=== PATIENT | male | born 1985 | race Caucasian/White ===

== ENCOUNTER 2022-09-03 10:05 | Inpatient (IN) | payer OTHER ==
[2022-09-03 10:27] VITALS: BMI 32.2
[2022-09-03] MEDS ORDERED: BENZOCAINE/MENTHOL (CHLORASEPTIC ) LOZENGE MM PRN (11:39)
[2022-09-03] MEDS ORDERED: NALOXONE HCL (KLOXXADO) 8 MG SPRAY NS PRN (11:39)
[2022-09-03] MEDS ORDERED: NICOTINE 10 MG CARTRIDGE (INHALER) IH PRN (11:39)
[2022-09-03] MEDS ORDERED: DICYCLOMINE HCL 10 MG CAPSULE PO PRN (11:39)
[2022-09-03] MEDS ORDERED: BENZONATATE 200 MG CAPSULE PO PRN (11:39)
[2022-09-03] MEDS ORDERED: ACETAMINOPHEN 325 MG TABLET (FP) PO PRN (11:39)
[2022-09-03] MEDS ORDERED: BISMUTH SUBSALICYLATE 262 MG/15 ML BTL PO PRN (11:39)
[2022-09-03] MEDS ORDERED: MAG HYDROX/AL HYDROX/SIMETH 30 ML UNIT-DOSE CUP PO PRN (11:39)
[2022-09-03] MEDS ORDERED: MAGNESIUM HYDROX 2400MG/30ML ORAL SUSPENSION 30 ML CUP PO PRN (11:39)
[2022-09-03] MEDS ORDERED: LORazepam 2 MG TABLET PO ONE (11:39)
[2022-09-03] MEDS ORDERED: IBUPROFEN 600 MG TABLET (FP) PO PRN (11:39)
[2022-09-03] MEDS ORDERED: METHOCARBAMOL 500 MG TABLET PO PRN (11:39)
[2022-09-03] MEDS ORDERED: LOPERAMIDE HCL 2 MG CAPSULE PO PRN (11:39)
[2022-09-03] MEDS ORDERED: hydrOXYzine PAMOATE 25 MG CAPSULE (FP) PO PRN (11:39)
[2022-09-03] MEDS ORDERED: POLYETHYLENE GLYCOL (HEALTHYLAX) 3350 17 GM PACKET PO PRN (11:39)
[2022-09-03] MEDS ORDERED: NALOXONE HCL 0.4 MG/ML VIAL IM PRN (11:39)
[2022-09-03] MEDS ORDERED: guaiFENesin 600 MG TABLET.ER (FP) PO PRN (11:39)
[2022-09-03] MEDS ORDERED: ONDANSETRON *ODT* 4 MG TABLET SL PRN (11:39)
[2022-09-03] MEDS ORDERED: IBUPROFEN 400 MG TABLET (FP) PO PRN (11:39)
[2022-09-03] MEDS ORDERED: NICOTINE 14 MG/24 HOURS TOPICAL PATCH TD ONE (12:29)
[2022-09-03] MEDS ORDERED: LORazepam 2 MG TABLET ONE (12:29)
[2022-09-03] MEDS ORDERED: PRENATAL VITAMINS W/ FOLIC ACID TABLET (FP) PO ONE (12:29)
[2022-09-03] MEDS: PRENATAL VITAMINS W/ FOLIC ACID TABLET (FP) PO SCH (12:34)
[2022-09-03] MEDS: NICOTINE 14 MG/24 HOURS TOPICAL PATCH TD SCH (12:34)
[2022-09-03] MEDS: LORazepam 1 MG TABLET PO PRN ×2 (13:27→18:36)
[2022-09-03 14:30] LABS: HEMATOCRIT 43.2 % (35.4-49); HEMOGLOBIN 15.4 GM/dL (11.7-16.9); MCH 29.2 pg (25.7-33.7); MCHC 35.7 g/dl (32.0-35.9); MEAN CELL VOLUME 81.7 fl (80-96); MEAN PLT VOLUME 9.1 fl (7.5-11.1); PLATELET COUNT 305 10^3/uL (134-434); RBC 5.28 M/mm3 (4.00-5.60); RDW 13.5 % (11.9-15.9); WHITE BLOOD COUNT 6.5 K/mm3 (4.0-10.0)
[2022-09-03 14:35] LABS: CALCIUM 9.1 mg/dL (8.5-10.1)
[2022-09-03 14:36] LABS: ALBUMIN 4.1 g/dl (3.4-5.0); BLOOD UREA NITROGEN 3.3 mg/dL (7-18)
[2022-09-03 14:39] LABS: CREATININE 0.7 mg/dL (0.55-1.3)
[2022-09-03 14:40] LABS: BILIRUBIN,TOTAL 0.5 mg/dL (0.2-1)
[2022-09-03 14:42] LABS: TOT PROT 8.6 g/dl (6.4-8.2)
[2022-09-03] MEDS: LORazepam 2 MG TABLET PO SCH ×2 (17:24→22:29)
[2022-09-03] MEDS ORDERED: THIAMINE HCL 100 MG TABLET (FP) PO SCH (22:00)
[2022-09-03] MEDS ORDERED: MELATONIN 5 MG TABLETS PO SCH (22:00)
[2022-09-04] MEDS: LORazepam 2 MG TABLET PO SCH ×2 (05:36→10:22)
[2022-09-04] MEDS: NICOTINE 14 MG/24 HOURS TOPICAL PATCH TD SCH (10:23)
[2022-09-04] MEDS: PRENATAL VITAMINS W/ FOLIC ACID TABLET (FP) PO SCH (10:23)
[2022-09-04 12:30] VITALS: BP 131/92; PULSE 100; RESP 16; TEMP 98.9
[2022-09-05] MEDS ORDERED: LORazepam 1 MG TABLET PO SCH (05:00)
[2022-09-06] MEDS ORDERED: LORazepam 0.5 MG TABLET PO PRN
[2022-09-06] MEDS ORDERED: LORazepam 0.5 MG TABLET PO SCH (05:00)
[2022-09-07] MEDS ORDERED: LORazepam 0.5 MG TABLET PO ONE (05:00)
== END 2022-09-04 13:40 | disposition left against medical advice (07) | DRG 770 ==
LOC: YASAS 10:05 → Y3N 12:35
PROVIDERS: ADMIT Allergy & Immunology; ATTEND Surgery
PROC: HZ2ZZZZ Detoxification Services for Substance Abuse Treatment (ICD-10-PCS; principal; 2022-09-03)
DX: F10.230 Alcohol dependence with withdrawal, uncomplicated (principal); F14.20 Cocaine dependence, uncomplicated; F17.210 Nicotine dependence, cigarettes, uncomplicated; F41.1 Generalized anxiety disorder; J45.909 Unspecified asthma, uncomplicated; J30.2 Other seasonal allergic rhinitis; K21.9 Gastro-esophageal reflux disease without esophagitis
CPT/HCPCS: 36415; 80053; 82140; 85027; 86780; 87811; 93005; 93010; C9803-CS; U0003; U0005

== ENCOUNTER 2022-12-25 18:46 | Inpatient (IN) | payer OTHER ==
[2022-12-25 21:42] VITALS: BMI 34.2
[2022-12-25] MEDS ORDERED: NALOXONE HCL (KLOXXADO) 8 MG SPRAY NS PRN (23:09)
[2022-12-25] MEDS ORDERED: BISMUTH SUBSALICYLATE 524 MG/30 ML PO PRN (23:09)
[2022-12-25] MEDS ORDERED: ONDANSETRON *ODT* 4 MG TABLET SL PRN (23:09)
[2022-12-25] MEDS ORDERED: BENZOCAINE/MENTHOL (CHLORASEPTIC ) LOZENGE MM PRN (23:09)
[2022-12-25] MEDS ORDERED: IBUPROFEN 600 MG TABLET (FP) PO PRN (23:09)
[2022-12-25] MEDS ORDERED: IBUPROFEN 400 MG TABLET (FP) PO PRN (23:09)
[2022-12-25] MEDS ORDERED: MAGNESIUM HYDROX 2400MG/30ML ORAL SUSPENSION 30 ML CUP PO PRN (23:09)
[2022-12-25] MEDS ORDERED: NICOTINE POLACRILEX 2 MG GUM BUC PRN (23:09)
[2022-12-25] MEDS ORDERED: POLYETHYLENE GLYCOL (HEALTHYLAX) 3350 17 GM PACKET PO PRN (23:09)
[2022-12-25] MEDS ORDERED: LOPERAMIDE HCL 2 MG CAPSULE PO PRN (23:09)
[2022-12-25] MEDS ORDERED: BENZONATATE 200 MG CAPSULE PO PRN (23:09)
[2022-12-25] MEDS ORDERED: MAG HYDROX/AL HYDROX/SIMETH 30 ML UNIT-DOSE CUP PO PRN (23:09)
[2022-12-25] MEDS ORDERED: METHOCARBAMOL 500 MG TABLET PO PRN (23:09)
[2022-12-25] MEDS ORDERED: ACETAMINOPHEN 325 MG TABLET (FP) PO PRN (23:09)
[2022-12-25] MEDS ORDERED: NALOXONE HCL 0.4 MG/ML VIAL IM PRN (23:09)
[2022-12-25] MEDS ORDERED: guaiFENesin 600 MG TABLET.ER (FP) PO PRN (23:09)
[2022-12-25] MEDS ORDERED: DICYCLOMINE HCL 10 MG CAPSULE PO PRN (23:09)
[2022-12-26] MEDS ORDERED: LORazepam 1 MG TABLET ONE (02:14)
[2022-12-26] MEDS: LORazepam 1 MG TABLET PO PRN ×2 (02:17→13:49)
[2022-12-26] MEDS: LORazepam 2 MG TABLET PO SCH ×3 (04:16→17:03)
[2022-12-26] MEDS ORDERED: PRENATAL VITAMINS W/ FOLIC ACID TABLET (FP) PO SCH (10:00)
[2022-12-26] MEDS ORDERED: NICOTINE 21 MG/24 HOURS TOPICAL PATCH TD SCH (10:00)
[2022-12-26 11:38] LABS: HEMATOCRIT 47.2 % (35.4-49); HEMOGLOBIN 16.1 GM/dL (11.7-16.9); MCH 28.1 pg (25.7-33.7); MCHC 34.2 g/dl (32.0-35.9); MEAN CELL VOLUME 82.1 fl (80-96); MEAN PLT VOLUME 9.1 fl (7.5-11.1); PLATELET COUNT 230 10^3/uL (134-434); RBC 5.75 M/mm3 (4.00-5.60); RDW 13.4 % (11.9-15.9); WHITE BLOOD COUNT 6.7 K/mm3 (4.0-10.0)
[2022-12-26 11:40] LABS: POTASSIUM 4.2 mmol/L (3.5-5.1)
[2022-12-26] MEDS ORDERED: PNEUMOC 20-VAL CONJ-DIP CRM/PF 0.5 ML SYRINGE IM ONE (12:00)
[2022-12-26 12:21] LABS: ALBUMIN 4.3 g/dl (3.4-5.0); CALCIUM 9.4 mg/dL (8.5-10.1)
[2022-12-26 12:22] LABS: BLOOD UREA NITROGEN 13.2 mg/dL (7-18)
[2022-12-26 12:24] LABS: CREATININE 0.9 mg/dL (0.55-1.3)
[2022-12-26 12:26] LABS: TOT PROT 8.3 g/dl (6.4-8.2)
[2022-12-26 17:35] VITALS: BP 138/91; RESP 18; TEMP 98.4
[2022-12-26 18:08] VITALS: PULSE 89
[2022-12-26] MEDS ORDERED: THIAMINE HCL 100 MG TABLET (FP) PO SCH (22:00)
[2022-12-26] MEDS ORDERED: MELATONIN 5 MG TABLETS PO SCH (22:00)
[2022-12-27] MEDS ORDERED: LORazepam 1 MG TABLET PO SCH (05:00)
[2022-12-28] MEDS ORDERED: LORazepam 0.5 MG TABLET PO PRN
[2022-12-28] MEDS ORDERED: LORazepam 0.5 MG TABLET PO SCH (05:00)
[2022-12-29] MEDS ORDERED: LORazepam 0.5 MG TABLET PO ONE (05:00)
== END 2022-12-26 20:10 | disposition left against medical advice (07) | DRG 770 ==
LOC: YASAS 18:46 → Y3N 12-26 01:58
PROVIDERS: ADMIT Allergy & Immunology; ATTEND Surgery
PROC: HZ2ZZZZ Detoxification Services for Substance Abuse Treatment (ICD-10-PCS; principal; 2022-12-26)
DX: F10.230 Alcohol dependence with withdrawal, uncomplicated (principal); F17.210 Nicotine dependence, cigarettes, uncomplicated; F41.1 Generalized anxiety disorder; F32.A Depression, unspecified; K21.9 Gastro-esophageal reflux disease without esophagitis
CPT/HCPCS: 36415; 80053; 85027; 86780; 87635; 93005; 93010

== ENCOUNTER 2023-07-02 19:59 | Inpatient (IN) | payer SELFPAY ==
[2023-07-02 20:24] VITALS: BMI 35.4
[2023-07-02] MEDS ORDERED: guaiFENesin 600 MG TABLET.ER (FP) PO PRN (22:10)
[2023-07-02] MEDS ORDERED: BENZOCAINE/MENTHOL (CHLORASEPTIC ) LOZENGE MM PRN (22:10)
[2023-07-02] MEDS ORDERED: NALOXONE HCL (KLOXXADO) 8 MG SPRAY NS PRN (22:10)
[2023-07-02] MEDS ORDERED: POLYETHYLENE GLYCOL (HEALTHYLAX) 3350 17 GM PACKET PO PRN (22:10)
[2023-07-02] MEDS ORDERED: MAGNESIUM HYDROX 2400MG/30ML ORAL SUSPENSION 30 ML CUP PO PRN (22:10)
[2023-07-02] MEDS ORDERED: ACETAMINOPHEN 325 MG TABLET (FP) PO PRN (22:10)
[2023-07-02] MEDS ORDERED: DICYCLOMINE HCL 10 MG CAPSULE PO PRN (22:10)
[2023-07-02] MEDS ORDERED: BISMUTH SUBSALICYLATE 524 MG/30 ML PO PRN (22:10)
[2023-07-02] MEDS ORDERED: NALOXONE HCL 0.4 MG/ML VIAL IM PRN (22:10)
[2023-07-02] MEDS ORDERED: IBUPROFEN 400 MG TABLET (FP) PO PRN (22:10)
[2023-07-02] MEDS ORDERED: BENZONATATE 200 MG CAPSULE PO PRN (22:10)
[2023-07-02] MEDS ORDERED: MAG HYDROX/AL HYDROX/SIMETH 30 ML UNIT-DOSE CUP PO PRN (22:10)
[2023-07-02] MEDS ORDERED: LOPERAMIDE HCL 2 MG CAPSULE PO PRN (22:10)
[2023-07-02] MEDS ORDERED: NICOTINE POLACRILEX 2 MG GUM BUC PRN (22:10)
[2023-07-02] MEDS ORDERED: hydrOXYzine PAMOATE 25 MG CAPSULE (FP) PO PRN (22:10)
[2023-07-02] MEDS ORDERED: LORazepam 2 MG TABLET ONE (22:41)
[2023-07-02] MEDS ORDERED: cloNIDine HCL 0.1 MG TABLET ONE (22:41)
[2023-07-02] MEDS ORDERED: TRIMETHOBENZAMIDE HCL 200MG/2ML INJ IM ONE (22:42)
[2023-07-02] MEDS: TRIMETHOBENZAMIDE HCL 200MG/2ML INJ IM ONE (22:51)
[2023-07-02] MEDS: cloNIDine HCL 0.1 MG TABLET PO ONE (22:51)
[2023-07-02] MEDS: LORazepam 2 MG TABLET PO SCH (22:55)
[2023-07-03] MEDS: LORazepam 1 MG TABLET PO PRN (01:01)
[2023-07-03] MEDS: METHOCARBAMOL 500 MG TABLET PO PRN (01:01)
[2023-07-03] MEDS: NICOTINE 21 MG/24 HOURS TOPICAL PATCH TD SCH (10:24)
[2023-07-03] MEDS: PRENATAL VITAMINS W/ FOLIC ACID TABLET (FP) PO SCH (10:26)
[2023-07-03] MEDS: IBUPROFEN 600 MG TABLET (FP) PO PRN (10:28)
[2023-07-03 10:43] LABS: HEMOGLOBIN 14.5 GM/dL (11.7-16.9); MCH 29.2 pg (25.7-33.7); MCHC 36.1 g/dl (32.0-35.9); MEAN CELL VOLUME 80.8 fl (80-96); MEAN PLT VOLUME 8.7 fl (7.5-11.1); PLATELET COUNT 246 10^3/uL (134-434); RBC 4.95 M/mm3 (4.00-5.60); RDW 12.8 % (11.9-15.9); WHITE BLOOD COUNT 4.8 K/mm3 (4.0-10.0)
[2023-07-03] MEDS: FLU VACCINE (FLULAVAL) PF 60 MCG/0.5 ML SYRINGE 2023-2024 IM ONE (12:14)
[2023-07-03] MEDS: PNEUMOC 20-VAL CONJ-DIP CRM/PF 0.5 ML SYRINGE IM ONE (12:17)
[2023-07-03 13:04] LABS: CALCIUM 8.4 mg/dL (8.5-10.1)
[2023-07-03 13:05] LABS: ALBUMIN 3.8 g/dl (3.4-5.0); BLOOD UREA NITROGEN 12.2 mg/dL (7-18)
[2023-07-03 13:08] LABS: CREATININE 0.7 mg/dL (0.55-1.3)
[2023-07-03 13:10] LABS: BILIRUBIN,TOTAL 0.9 mg/dL (0.2-1); TOT PROT 7.2 g/dl (6.4-8.2)
[2023-07-03] MEDS: ONDANSETRON *ODT* 4 MG TABLET SL PRN (17:56)
[2023-07-03 22:21] VITALS: RESP 18
[2023-07-03] MEDS: MELATONIN 5 MG TABLETS PO SCH (22:33)
[2023-07-03] MEDS: THIAMINE HCL 100 MG TABLET (FP) PO SCH (22:33)
[2023-07-04] MEDS: LORazepam 1 MG TABLET PO SCH (06:00)
[2023-07-04 07:06] VITALS: TEMP 97.5
[2023-07-04 09:50] VITALS: BP 140/96; PULSE 96
[2023-07-05] MEDS ORDERED: LORazepam 0.5 MG TABLET PO PRN
[2023-07-05] MEDS ORDERED: LORazepam 0.5 MG TABLET PO SCH (05:00)
[2023-07-06] MEDS ORDERED: LORazepam 0.5 MG TABLET PO ONE (05:00)
== END 2023-07-04 09:40 | disposition left against medical advice (07) | DRG 770 ==
LOC: YASAS 19:59 → Y6N 23:49
PROVIDERS: ADMIT Allergy & Immunology; ATTEND Surgery
PROC: HZ2ZZZZ Detoxification Services for Substance Abuse Treatment (ICD-10-PCS; principal; 2023-07-02)
DX: F10.230 Alcohol dependence with withdrawal, uncomplicated (principal); F10.280 Alcohol dependence with alcohol-induced anxiety disorder; F10.282 Alcohol dependence with alcohol-induced sleep disorder; J45.909 Unspecified asthma, uncomplicated; J30.9 Allergic rhinitis, unspecified; K21.9 Gastro-esophageal reflux disease without esophagitis; R03.0 Elevated blood-pressure reading, without diagnosis of hypertension; R73.9 Hyperglycemia, unspecified; Z87.19 Personal history of other diseases of the digestive system; Z87.891 Personal history of nicotine dependence
CPT/HCPCS: 36415; 80053; 80305; 80307; 85027; 86780; 87635; 87811; 90677; 90686; 93005; 93010; G0008; Q0162

== ENCOUNTER 2023-10-10 14:29 | Inpatient (IN) | payer SELFPAY ==
[2023-10-10 15:27] VITALS: BMI 33.6
[2023-10-10] MEDS ORDERED: POLYETHYLENE GLYCOL (HEALTHYLAX) 3350 17 GM PACKET PO PRN (15:57)
[2023-10-10] MEDS ORDERED: MAG HYDROX/AL HYDROX/SIMETH 30 ML UNIT-DOSE CUP PO PRN (15:57)
[2023-10-10] MEDS ORDERED: IBUPROFEN 400 MG TABLET (FP) PO PRN (15:57)
[2023-10-10] MEDS ORDERED: ACETAMINOPHEN 325 MG TABLET (FP) PO PRN (15:57)
[2023-10-10] MEDS ORDERED: BISMUTH SUBSALICYLATE 524 MG/30 ML PO PRN (15:57)
[2023-10-10] MEDS ORDERED: guaiFENesin 600 MG TABLET.ER (FP) PO PRN (15:57)
[2023-10-10] MEDS ORDERED: LOPERAMIDE HCL 2 MG CAPSULE PO PRN (15:57)
[2023-10-10] MEDS ORDERED: BENZOCAINE/MENTHOL (CHLORASEPTIC ) LOZENGE MM PRN (15:57)
[2023-10-10] MEDS ORDERED: BENZONATATE 200 MG CAPSULE PO PRN (15:57)
[2023-10-10] MEDS ORDERED: MAGNESIUM HYDROX 2400MG/30ML ORAL SUSPENSION 30 ML CUP PO PRN (15:57)
[2023-10-10] MEDS ORDERED: DICYCLOMINE HCL 10 MG CAPSULE PO PRN (15:57)
[2023-10-10] MEDS ORDERED: chlordiazePOXIDE HCL 25 MG CAPSULE ONE (16:15)
[2023-10-10] MEDS: chlordiazePOXIDE HCL 25 MG CAPSULE PO ONE (16:19)
[2023-10-10] MEDS: hydrOXYzine PAMOATE 25 MG CAPSULE (FP) PO PRN (17:40)
[2023-10-10] MEDS: IBUPROFEN 600 MG TABLET (FP) PO PRN (17:40)
[2023-10-10] MEDS: chlordiazePOXIDE HCL 25 MG CAPSULE PO PRN (19:11)
[2023-10-10] MEDS: METHOCARBAMOL 500 MG TABLET PO PRN (19:11)
[2023-10-10] MEDS: chlordiazePOXIDE HCL 25 MG CAPSULE PO SCH (22:13)
[2023-10-10] MEDS: MELATONIN 5 MG TABLETS PO SCH (22:13)
[2023-10-10] MEDS: THIAMINE 100 MG TABLET PO SCH (22:13)
[2023-10-11] MEDS: PRENATAL VITAMINS W/ FOLIC ACID TABLET (FP) PO SCH (10:25)
[2023-10-11 11:52] LABS: HEMATOCRIT 39.9 % (35.4-49); HEMOGLOBIN 14.3 GM/dL (11.7-16.9); MCH 28.6 pg (25.7-33.7); MCHC 35.9 g/dl (32.0-35.9); MEAN CELL VOLUME 79.7 fl (80-96); MEAN PLT VOLUME 8.8 fl (7.5-11.1); PLATELET COUNT 260 10^3/uL (134-434); RBC 5.01 M/mm3 (4.00-5.60); RDW 13.1 % (11.9-15.9); WHITE BLOOD COUNT 5.6 K/mm3 (4.0-10.0)
[2023-10-11 11:54] LABS: POTASSIUM 4.3 mmol/L (3.5-5.1)
[2023-10-11 11:56] LABS: ALBUMIN 3.7 g/dl (3.4-5.0); CALCIUM 8.9 mg/dL (8.5-10.1)
[2023-10-11 11:57] LABS: BLOOD UREA NITROGEN 10.9 mg/dL (7-18)
[2023-10-11 12:00] LABS: CREATININE 0.7 mg/dL (0.55-1.3)
[2023-10-11 12:01] LABS: TOT PROT 6.8 g/dl (6.4-8.2)
[2023-10-11] MEDS: ONDANSETRON *ODT* 4 MG TABLET SL PRN (12:36)
[2023-10-12] MEDS: chlordiazePOXIDE HCL 25 MG CAPSULE PO SCH (05:40)
[2023-10-12 08:43] VITALS: BP 129/83; PULSE 111; RESP 16; TEMP 98.6
[2023-10-13] MEDS ORDERED: chlordiazePOXIDE HCL 10 MG CAPSULE PO PRN
[2023-10-13] MEDS ORDERED: chlordiazePOXIDE HCL 10 MG CAPSULE PO SCH (05:00)
[2023-10-14] MEDS ORDERED: chlordiazePOXIDE HCL 10 MG CAPSULE PO SCH (05:00)
[2023-10-15] MEDS ORDERED: chlordiazePOXIDE HCL 10 MG CAPSULE PO ONE (05:00)
== END 2023-10-12 11:53 | disposition left against medical advice (07) | DRG 770 ==
LOC: YASAS 14:29 → Y6N 17:13
PROVIDERS: ADMIT Allergy & Immunology; ATTEND Surgery
PROC: HZ2ZZZZ Detoxification Services for Substance Abuse Treatment (ICD-10-PCS; principal; 2023-10-10)
DX: F10.230 Alcohol dependence with withdrawal, uncomplicated (principal); F41.9 Anxiety disorder, unspecified; R73.9 Hyperglycemia, unspecified; R74.8 Abnormal levels of other serum enzymes
CPT/HCPCS: 36415; 80053; 80305; 80307; 85027; 86780; Q0162

== ENCOUNTER 2025-03-14 12:22 | Inpatient (IN) | payer OTHER ==
[2025-03-14 12:52] VITALS: BMI 31.6
[2025-03-14] MEDS ORDERED: FAMOTIDINE 20 MG/50 ML IVPB 20 MG/50 ML MG IVPB ONE (13:16)
[2025-03-14] MEDS: SODIUM CHLORIDE 0.9% 500 ML INFUS.BAG IV ONE (13:32)
[2025-03-14] MEDS: FAMOTIDINE 20 MG/50 ML IVPB 20 MG/50 ML MG IVPB ONE (13:32)
[2025-03-14 13:40] LABS: MCHC 34.6 g/dl (32.3-36.5); MEAN CELL VOLUME 79.0 fl (79.0-92.2); MEAN PLT VOLUME 10.7 fl (9.4-12.4); RDW 11.9 % (12.0-15.6)
[2025-03-14 14:08] LABS: GLUCOSE,RANDOM 106.0 mg/dL (74-106)
[2025-03-14 14:09] LABS: TOT PROT 6.6 g/dl (6.4-8.2)
[2025-03-14 14:10] LABS: CO2 24.0 mmol/L (21-32)
[2025-03-14 14:11] LABS: ALK PHOS 132.0 U/L (40-150)
[2025-03-14 14:14] LABS: CREATININE 0.72 mg/dL (0.55-1.3); SGOT/AST 2072.0 U/L (5-34)
[2025-03-14 14:18] LABS: BG HCT 51.0 % (35.4-49); VENOUS BASE EXCESS 1.9 mmol/L (-2-2); VENOUS O2 SATURATION 54.2 % (70-80); VENOUS PCO2 39.5 mmHg (38-52); VENOUS PH 7.437 (7.310-7.410)
[2025-03-14 14:35] LABS: HCV DIAGNOSTIC IN-HOUSE W/RFLX NON-REACTIVE (NONREACTIVE)
[2025-03-14 14:36] LABS: HIV INTERPRETATION NEGATIVE (NEGATIVE)
[2025-03-14 14:41] LABS: INR 1.39 (0.83-1.09); LACTIC ACID 2.6 mmol/L (0.4-2.0); PROTHROMBIN TIME (PATIENT) 15.2 SEC (9.7-13.0)
[2025-03-14 14:44] LABS: ACTIVATED PTT 31.4 SECONDS (25.2-36.5)
[2025-03-14 15:24] LABS: SGPT/ALT 1936.0 U/L (0-55)
[2025-03-14] MEDS: LACTATED RINGERS SOLUTION 1,000 ML/1,000 ML INFUS.BAG IV STA (16:02)
[2025-03-14] MEDS ORDERED: MAG HYDROX/AL HYDROX/SIMETH 30 ML UNIT-DOSE CUP ONE (16:16)
[2025-03-14] MEDS: SUCRALFATE 1 GM/10 ML UNIT DOSE CUPS PO ONE (16:18)
[2025-03-14] MEDS: MAG HYDROX/AL HYDROX/SIMETH 30 ML UNIT-DOSE CUP PO ONE (16:18)
[2025-03-14] MEDS ORDERED: MAG HYDROX/AL HYDROX/SIMETH 30 ML UNIT-DOSE CUP PO PRN (16:36)
[2025-03-14 16:43] LABS: GLUCOSE,RANDOM 93.0 mg/dL (74-106); TOT PROT 6.0 g/dl (6.4-8.2)
[2025-03-14 16:44] LABS: CO2 25.0 mmol/L (21-32)
[2025-03-14 16:46] LABS: ALK PHOS 128.0 U/L (40-150)
[2025-03-14 16:48] LABS: SGOT/AST 1786.0 U/L (5-34)
[2025-03-14 16:49] LABS: CREATININE 0.77 mg/dL (0.55-1.3)
[2025-03-14 17:09] LABS: HEP A VIRUS IGM NON-REACTIVE (NONREACTIVE); HEPATITIS B SURF AG NON-MATERN NON-REACTIVE (NONREACTIVE)
[2025-03-14 17:18] LABS: SGPT/ALT 1702.0 U/L (0-55)
[2025-03-14] MEDS: SODIUM PHOSPHATE - 15 MM in DEXTROSE 5%-WATER - 250 ML IVPB ONE (18:12)
[2025-03-14] MEDS ORDERED: FAMOTIDINE 20 MG TABLET ONE (22:04)
[2025-03-14] MEDS: FAMOTIDINE 20 MG TABLET PO SCH (22:17)
[2025-03-15 02:36] VITALS: RESP 18
[2025-03-15 05:40] LABS: HEPATITIS A VIRUS IgG II REACTIVE (NONREACTIVE)
[2025-03-15 07:36] LABS: ABSOLUTE IMMATURE GRANULOCYTES 0.01 x10^3/uL (0.0-0.031); BASOPHILS # 0.03 x10^3/uL (0.01-0.08); EOSINOPHIL % 0.8 % (0.8-7.0); EOSINOPHILS # 0.03 x10^3/uL (0.04-0.54); MCHC 34.8 g/dl (32.3-36.5); MEAN CELL VOLUME 79.7 fl (79.0-92.2); MEAN PLT VOLUME 11.2 fl (9.4-12.4); MONOCYTE # 0.20 x10^3/uL (0.30-0.82); MONOCYTE % 5.3 % (5.3-12.2); RDW 12.1 % (12.0-15.6)
[2025-03-15 07:51] LABS: GLUCOSE,RANDOM 104.0 mg/dL (74-106)
[2025-03-15 07:52] LABS: TOT PROT 5.8 g/dl (6.4-8.2)
[2025-03-15 07:53] LABS: CO2 26.0 mmol/L (21-32)
[2025-03-15 07:54] LABS: ALK PHOS 129.0 U/L (40-150)
[2025-03-15 07:57] LABS: CREATININE 0.73 mg/dL (0.55-1.3); SGOT/AST 1063.0 U/L (5-34)
[2025-03-15 08:17] LABS: SGPT/ALT 1292.0 U/L (0-55)
[2025-03-15] MEDS: FOLIC ACID 1 MG TABLET (FP) PO SCH (09:54)
[2025-03-15] MEDS: ENOXAPARIN NA (PORCINE) 40 MG/0.4 ML DISP.SYRIN SQ SCH (09:55)
[2025-03-15] MEDS: THIAMINE 100 MG TABLET PO SCH (09:55)
[2025-03-15] MEDS ORDERED: PHYTONADIONE 10 MG/1 ML AMP IVPB ONE (13:15)
[2025-03-15] MEDS: PANTOPRAZOLE 40 MG TABLET PO SCH (14:36)
[2025-03-15] MEDS: LIPASE/PROTEASE/AMYLASE 36,000 UNIT CAPSULE PO SCH (18:03)
[2025-03-15] MEDS ORDERED: HEPARIN NA (PORCINE) 5,000 UNITS/ML 1ML VIAL SQ SCH (22:00)
[2025-03-16 02:35] VITALS: TEMP 97.9
[2025-03-16 07:25] LABS: ABSOLUTE IMMATURE GRANULOCYTES 0.01 x10^3/uL (0.0-0.031); BASOPHILS # 0.03 x10^3/uL (0.01-0.08); EOSINOPHIL % 1.1 % (0.8-7.0); EOSINOPHILS # 0.05 x10^3/uL (0.04-0.54); MCHC 34.3 g/dl (32.3-36.5); MEAN CELL VOLUME 79.8 fl (79.0-92.2); MEAN PLT VOLUME 11.3 fl (9.4-12.4); MONOCYTE # 0.28 x10^3/uL (0.30-0.82); MONOCYTE % 6.2 % (5.3-12.2); RDW 12.2 % (12.0-15.6)
[2025-03-16 07:43] LABS: INR 1.05 (0.83-1.09); PROTHROMBIN TIME (PATIENT) 11.6 SEC (9.7-13.0)
[2025-03-16 07:46] LABS: GLUCOSE,RANDOM 94.0 mg/dL (74-106)
[2025-03-16 07:47] LABS: CO2 25.0 mmol/L (21-32); TOT PROT 6.0 g/dl (6.4-8.2)
[2025-03-16 07:49] LABS: ALK PHOS 131.0 U/L (40-150)
[2025-03-16 07:52] VITALS: BP 125/91; PULSE 90
[2025-03-16 07:52] LABS: CREATININE 0.68 mg/dL (0.55-1.3); SGOT/AST 574.0 U/L (5-34); SGPT/ALT 1002.0 U/L (0-55)
[2025-03-16] MEDS: POTASSIUM CHLORIDE ORAL LIQUID 20 MEQ/15 ML PO ONE (10:36)
== END 2025-03-16 14:05 | disposition left against medical advice (07) | DRG 280 ==
LOC: JER 12:22 → JERBED 16:04 → OBSVTOIN 16:31 → J4W 03-15 01:16
PROVIDERS: ADMIT Internal Medicine; ATTEND Internal Medicine
DX: K70.10 Alcoholic hepatitis without ascites (principal); K21.9 Gastro-esophageal reflux disease without esophagitis; J45.909 Unspecified asthma, uncomplicated; R74.8 Abnormal levels of other serum enzymes; R74.01 Elevation of levels of liver transaminase levels; F10.130 Alcohol abuse with withdrawal, uncomplicated; F41.8 Other specified anxiety disorders
CPT/HCPCS: 36415; 71045-TC-FY; 76705-TC; 80053; 80307; 82248; 82803; 82977; 83605; 83690; 83735; 84100; 84484; 85025; 85610; 85730; 86038; 86704; 86708; 86803; 87340; 87389; 87517; 93005; 93010; 99285-25; G0378